=== PATIENT | male | born 1990 | race Two or more races ===

== ENCOUNTER 2023-12-17 19:08 | Emergency (ER) | payer OTHER ==
[~2023-12-17] VITALS: Ht 177.8 cm; Wt 86.2 kg
[2023-12-17] MEDS ORDERED: KETOROLAC TROMETHAMINE 30 MG VIAL IM ONE (20:15)
[2023-12-17] MEDS ORDERED: TETANUS & DIPHTHERIA TOX,ADULT 0.5 ML VIAL IM ONE (20:15)
== END 2023-12-17 21:32 | disposition home or self-care (01) ==
LOC: ER 19:10
DX: M79.5 Residual foreign body in soft tissue (principal)